=== PATIENT | female | born 1955 | race Caucasian/White ===

== ENCOUNTER 2023-07-24 15:30 | Emergency (ER) | payer MEDICARE ==
[~2023-07-24] VITALS: Ht 165.1 cm; Wt 54.5 kg
[2023-07-24 22:07] LABS: BASOPHILS % (AUTO) 0.1 % (0-1); EOSINOPHILS % (AUTO) 0.4 % (0-6); HEMATOCRIT 42.6 % (35.0-45.0); LYMPHOCYTES # (AUTO) 1.1 X10'3 (1.1-4.8); LYMPHOCYTES % (AUTO) 10.7 % (21-51); MEAN CORPUSCULAR HEMOGLOBIN 31.4 PG (27.0-31.0); MEAN CORPUSCULAR HGB CONC 32.9 g/dL (33.0-36.5); MEAN CORPUSCULAR VOLUME 95.5 FL (78-98); MEAN PLATELET VOLUME 6.8 FL (7.4-10.4); MONOCYTES # (AUTO) 0.4 X10'3 (0-0.9); MONOCYTES % (AUTO) 3.6 % (2-12); NEUTROPHILS # (AUTO) 8.5 X10'3 (1.8-7.7); NEUTROPHILS % (AUTO) 85.2 % (42-75); PLATELET COUNT 592 X10'3 (140-440); RED BLOOD COUNT 4.46 X10'6 (4.20-5.60); RED CELL DISTRIBUTION WIDTH 13.9 % (11.5-14.5); WHITE BLOOD COUNT 9.9 X10'3 (4.5-11.0)
[2023-07-24 22:19] LABS: ALANINE AMINOTRANSFERASE 30 U/L (12-78); ALBUMIN 4.2 G/DL (3.4-5.0); ALKALINE PHOSPHATASE 73 IU/L (46-116); ANION GAP 10 (8-16); ASPARTATE AMINO TRANSFERASE 30 U/L (10-37); BILIRUBIN,TOTAL 0.2 MG/DL (0.1-1.0); BLOOD UREA NITROGEN 6 MG/DL (7-18); BUN/CREATININE RATIO 10.9 (10.0-20.0); CALCIUM 8.5 MG/DL (8.5-10.1); CHLORIDE 100 MMOL/L (99-107); CREATININE 0.55 MG/DL (0.40-0.90); ETHANOL 191 MG/DL (<10); GLUCOSE 110 MG/DL (70-104); POTASSIUM 4.1 MMOL/L (3.5-5.1); SODIUM 138 MMOL/L (135-145); TOTAL CARBON DIOXIDE 28.3 MMOL/L (24-32); TOTAL PROTEIN 8.5 G/DL (6.4-8.2); eCRCL 84 ML/MIN; eGFR > 90 ML/MIN
[2023-07-24 22:36] LABS: URINE AMPHETAMINE SCREEN NEGATIVE (Neg); URINE BARBITUATE SCREEN NEGATIVE (Neg); URINE BENZODIAZEPINES SCREEN NEGATIVE (Neg); URINE CANNABINOID SCREEN POSITIVE (Neg); URINE COCAINE SCREEN NEGATIVE (Neg); URINE METHADONE SCREEN NEGATIVE (Neg); URINE PHENCYCLIDINE SCREEN NEGATIVE (Neg)
[2023-07-24] MEDS: ondansetron/PF 4mg/2ml inj IV STA (23:31)
[2023-07-24] MEDS: thiamine 100mg/ml 2ml inj. IV ONE (23:34)
[2023-07-24] MEDS: folic acid 1mg/0.2ml inj IV STA (23:37)
[2023-07-24] MEDS: ringers solution, lacted 1,000 ML IV ONE (23:39)
[2023-07-25 02:53] VITALS: BP 130/75; PULSE 90; RESP 16; TEMP 97.9; O2SAT 96
== END 2023-07-25 02:32 | disposition home or self-care (01) ==
LOC: ER 15:32
DX: F10.129 Alcohol abuse with intoxication, unspecified (principal)
CPT/HCPCS: 36415; 80053; 80305; 80320; 85025; 96374; 96375; 99284; J2405; J3411; J3490; J7120; 99283